=== PATIENT | male | born 1985 | race Caucasian/White ===

== ENCOUNTER 2020-03-13 18:25 | Emergency (ER) | payer OTHER, SELFPAY ==
[2020-03-13 18:31] VITALS: BP 152/100; PULSE 108; RESP 20; TEMP 36.7; O2SAT 100
--- NOTE | 2020-03-13 18:54 | ED.GENADULT ---
HPI - General Adult General Chief complaint: Eye Problems Stated complaint: fb in eye Time Seen by Provider: 03/13/20 18:55 Source: patient Mode of arrival: ambulatory Limitations: no limitations History of Present Illness HPI narrative: 34-year-old male patient presents to the [facility] with complaints of what he feels like is a foreign body in the right eye. Patient states he was power washing the house today and he did have safety glasses on however he states it was starting to get dark and he took his safety glasses off and thinks he got a piece of sand mortar into his eye. Patient states he has tried flushing it out several times but still feels like something is in there. Related Data Home Medications Medication Instructions Recorded Confirmed alprazolam 0.5 mg PO BID PRN 03/13/20 03/13/20 dextroamphetamine 30 mg PO BID 03/13/20 03/13/20 Allergies Allergy/AdvReac Type Severity Reaction Status Date / Time No Known Allergies Allergy Verified 03/13/20 18:48 Review of Systems Review of Systems: Narrative: CONSTITUTIONAL: Denies fever, chills, or sweats. EYES: Denies visual changes, redness, or discharge. Positive right eye irritation and feeling of a foreign body ENT: Denies rhinorrhea, congestion, sore throat, or otalgia. CARDIOVASCULAR: Denies chest pain, palpitations, or edema. RESPIRATORY: Denies cough or dyspnea. GASTROINTESTINAL: Denies abdominal pain, nausea, vomiting, or diarrhea. GENITOURINARY: Denies dysuria or hematuria. SKIN: Denies rash or itching. MUSCULOSKELETAL: Denies back pain, joint pain, or myalgia. NEUROLOGIC: Denies headache, numbness, or weakness. PSYCHIATRIC: Denies anxiety or depression. PMFSH Comments At the time of my signature I agree with nursing past medical history, surgical, social, and family history. There is no relevant family history pertinent to the presenting complaint. Exam Narrative: Exam Narrative: GENERAL: Well-appearing, well-nourished, and in no acute distress. HEAD: Normocephalic, atraumatic. EYES: PERRLA and EOM intact without limitation or complaint of pain, no periorbital soft tissue swelling ,no erythema, warmth or tenderness noted, no obvious deformity. No crusting or swelling.no tearing or draining.No photophobia. No nystagmus there does appear to be a foreign body noted on the cornea around the 2:00 area. Does appear to be a small white piece of foreign body. No injection to sclera. Lids and lashes clear. ENT: Nares clear, no rhinorrhea or epistaxis. Mucous membranes moist. NECK: Supple. No lymphadenopathy CHEST: Clear to auscultation. No respiratory distress. HEART: Regular rate and rhythm. No murmur heard. Normal peripheral pulses. ABDOMEN: Soft, nontender, nondistended, normal active bowel sounds. EXTREMITIES: Normal range of motion. No edema. SKIN: Warm, dry, no rash. NEURO: No focal deficits. Alert and oriented x3. Course Vital Signs Vital signs: Vital Signs Temperature 36.7 C 03/13/20 18:31 Pulse Rate 108 H 03/13/20 18:31 Respiratory Rate 20 03/13/20 18:31 Blood Pressure 152/100 H 03/13/20 18:31 Pulse Oximetry 100 03/13/20 18:31 Temperature 36.7 C 03/13/20 18:31 Pulse Rate 108 H 03/13/20 18:31 Respiratory Rate 20 03/13/20 18:31 Blood Pressure 152/100 H 03/13/20 18:31 Pulse Oximetry 100 03/13/20 18:31 Vital signs reviewed. The patient has been informed that they may have pre-hypertension or Hypertension based on a BP reading in the department. I recommend that the patient call the primary care provider listed on their discharge instructions or a physician of their choice this week to arrange follow up for further evaluation of possible pre-hypertension or Hypertension Procedures FB Removal Eye Foreign Body #1: Foreign Body Removal Date: 03/13/20 Foreign Body Removal Time: 19:00 Time Out performed: No Location: eye (R) Topical anesthetic used: tetracaine Foreign body: other (S
== END 2020-03-13 19:05 | disposition home or self-care (01) ==
PROVIDERS: Emergency Provider Nurse Practitioner Family
DX: T15.01XA Foreign body in cornea, right eye, initial encounter (principal); W29.8XXA Contact with other powered hand tools and household machinery, initial encounter
CPT/HCPCS: 65220; 99213; A9270; G0463